=== PATIENT | female | born 1990 | race Hispanic/Latino ===

== ENCOUNTER 2018-08-23 11:26 | Emergency (ER) | payer OTHER ==
[~2018-08-23] VITALS: Ht 162.6 cm; Wt 94.8 kg
[~2018-08-23 11:26] MED LIST: BENZONATATE100 MG PO; IBUPROFEN600 MG PO; LEVAQUIN500 MG PO; NON-ASPIRIN EX500 MG PO; PROMETHAZINE HC25 M1 PO
--- OUTSIDE RECORDS SUMMARY | 2018-08-23 11:30 | XMS REPORT ---
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 Allergies, Adverse Reactions, Alerts Allergy Name Allergy Type Status Severity Reaction(s) Onset Date Inactive Date Treating Clinician Comments hydromorphone DA Active [place] 2018-04-03 00:00:00 shellfish derived DA Active [place] 2018-04-03 00:00:00 shrimp DA Active [place] 2018-04-03 00:00:00 hydromorphone DA Active [place] 2018-03-29 00:00:00 shellfish derived DA Active [place] 2018-03-29 00:00:00 shrimp DA Active [place] 2018-03-29 00:00:00 hydromorphone DA Active [place] 2018-01-09 00:00:00 shrimp DA Active [place] 2018-01-09 00:00:00 Medications This patient has no known medications.
[2018-08-23 13:08] LABS: BASOPHILS % 0.3 % (0.0-1.0); EOSINOPHILS # (AUTO) 0.1 (0.0-0.4); EOSINOPHILS % 0.6 % (0.0-6.0); HEMATOCRIT 40.8 % (34.2-44.1); HEMOGLOBIN 13.2 g/dL (12.0-16.0); LYMPHOCYTES # (AUTO) 2.1 (1.0-3.2); MEAN CORPUSCULAR HGB CONC 32.4 g/dL (31-35); MEAN CORPUSCULAR VOLUME 83.6 fL (81-99); MONOCYTES # (AUTO) 0.5 (0.2-0.8); MONOCYTES % 5.2 % (4.4-11.3); NEUTROPHILS # (AUTO) 6.3 (2.1-6.9); NEUTROPHILS % 70.6 % (38.7-80.0); PLATELET COUNT 302 x10e3/uL (140-360); RED BLOOD COUNT 4.88 x10e6/uL (3.6-5.1); RED CELL DISTRIBUTION WIDTH 14.2 % (11.7-14.4)
[2018-08-23 13:35] LABS: ALANINE AMINOTRANSFERASE 24 IU/L (0-55); ALBUMIN 4.3 g/dL (3.5-5.0); ALBUMIN/GLOBULIN RATIO 1.3 (0.8-2.0); ALKALINE PHOSPHATASE 83 IU/L (40-150); ANION GAP 13.7 mmol/L (8-16); BLOOD UREA NITROGEN 10 mg/dL (7-26); BUN/CREATININE RATIO 15 (6-25); CALCIUM 9.6 mg/dL (8.4-10.2); CARBON DIOXIDE 24 mmol/L (22-29); CHLORIDE 104 mmol/L (98-107); CREATININE, SERUM 0.68 mg/dL (0.57-1.11); EST GLOMERULAR FILTRATION RATE > 60 ML/MIN (60-); GLUCOSE 86 mg/dL (74-118); POTASSIUM 3.7 mmol/L (3.5-5.1); SODIUM 138 mmol/L (136-145)
[2018-08-23 13:57] LABS: CREATINE KINASE 46 IU/L (29-168)
--- NOTE | 2018-08-23 17:19 | Diagnostic Imaging Report ---
EXAM: CT Chest WITH contrast 08/23/2018 11:33 AM INDICATION: ^r/o PE ^[id number] ^[id number] COMPARISON: None. TECHNIQUE: Spiral CT images of the chest were performed from the lung apices through the level of the adrenal glands after the IV contrast administration. Thin section reconstructions were obtained with special concentration on the pulmonary arteries. IV CONTRAST: 100 mL of Isovue-370 ORAL CONTRAST: None COMPLICATIONS: None RADIATION DOSE: Total DLP: 532.2 mGy*cm Estimated effective dose: (DLP x 0.015 x size factor) mSv CTDIvol has been reviewed. It is below the limits set by the Radiation Protocol Committee (RPC). FINDINGS: LINES/ TUBES: None. PULMONARY ARTERIES: Suboptimal contrast density in the pulmonary arteries ranging from 190-250 Hounsfield units. This may masquerade as small filling defects. Tiny filling defect in a subsegmental branch of the left lower lobe on series 2, image 50. Otherwise, no filling defects are identified in the main, right or left pulmonary arteries or remaining segmental and subsegmental levels, to suggest pulmonary embolism. The main pulmonary artery is normal in size, measuring 2.7 cm. LUNGS AND AIRWAYS: 5 mm solitary pulmonary nodule in the right middle lobe on series 3, image 42. Otherwise, lungs are clear. Airways are normal. PLEURA: The pleural spaces are clear. HEART AND MEDIASTINUM: The thyroid gland is normal. No mediastinal, hilar or axillary lymphadenopathy. The heart is normal in size. There is no pericardial effusion. The thoracic aorta and pulmonary arteries are unremarkable. UPPER ABDOMEN: Unremarkable. BONES: The visualized bony thorax is within normal limits. SOFT TISSUES: Unremarkable. IMPRESSION: Suboptimal contrast density within the pulmonary arteries. Tiny subsegmental filling defect in the left lower lobe is suggestive of a small pulmonary embolism. No filling defects in the remaining pulmonary arteries. Normal size of the pulmonary artery. No RV strain. Findings were communicated to Dr. Marie on 08/23/2018 at 5:05 PM Signed by: Dr. Ashley Aden M.D. on 08/23/2018 5:15 PM
[2018-08-23 19:09] VITALS: BP 112/77
[2018-08-23] MEDS ORDERED: SODIUM CHLORIDE 0.9% 50ML 50 ML ONE (19:12)
[2018-08-23] MEDS ORDERED: IOPAMIDOL 370 MG/ML 200 ML INFUS..BTL INJ ONE (19:12)
== END 2018-08-23 19:10 | disposition home or self-care (01) ==
LOC: ER 11:26
DX: R06.09 Other forms of dyspnea (principal); I26.99 Other pulmonary embolism without acute cor pulmonale
CPT/HCPCS: 36415; 71260; 80053; 82550; 82553; 84484; 84702; 85025; 93306; 99284; Q9967

== ENCOUNTER → 2020-01-09 | Outpatient (CLI) | payer OTHER ==
--- NOTE | 2020-01-09 16:21 | Diagnostic Imaging Report ---
EXAM: CT Chest WITHOUT intravenous contrast 01/09/2020 3:50 PM INDICATION: Pulmonary nodule COMPARISON: Chest CT 08/23/2018 TECHNIQUE: Chest was scanned utilizing a multidetector helical scanner from the lung apex through the level of the adrenal glands without administration of IV contrast. Coronal and sagittal reformations were obtained. Routine protocol was performed. IV CONTRAST: None RADIATION DOSE: Total DLP: 252 mGy*cm. Dose modulation, iterative reconstruction, and/or weight based adjustment of the mA/kV was utilized to reduce the radiation dose to as low as reasonably achievable. COMPLICATIONS: None FINDINGS: LINES/ TUBES: None. LUNGS AND AIRWAYS: The central airways are patent. No focal consolidation or pulmonary edema. Unchanged 5 mm right lower lobe pulmonary nodule. PLEURA: The pleural spaces are clear. HEART AND MEDIASTINUM: The thyroid gland is normal. No mediastinal, hilar or axillary lymphadenopathy. The heart is normal in size.. There is no pericardial effusion. UPPER ABDOMEN: No acute findings in the upper abdomen. BONES: The visualized bony thorax is within normal limits. SOFT TISSUES: Unremarkable. IMPRESSION: No focal pneumonia or pulmonary edema. Unchanged 5 mm right lower lobe pulmonary nodule is almost certainly benign and does not require further imaging follow-up. Signed by: Zahida Phillips MD on 01/09/2020 4:17 PM
== END ==
LOC: CT 15:26
PROVIDERS: ATTEND Internal Medicine
DX: R91.1 Solitary pulmonary nodule (principal)
CPT/HCPCS: 71250

== ENCOUNTER 2023-06-01 21:07 | Emergency (ER) | payer OTHER ==
[~2023-06-01] VITALS: Ht 162.6 cm; Wt 86.2 kg
[2023-06-01] MEDS ORDERED: ONDANSETRON HCL INJ 2MG/ML 2ML 2 MG/ML VIAL IV STA (21:58)
[2023-06-01] MEDS ORDERED: FAMOTIDINE 20 MG/2 ML VIAL IV STA (21:58)
[2023-06-01] MEDS ORDERED: SODIUM CHLORIDE 0.9% 1000ML 1,000 ML IV STA (21:58)
[2023-06-01 22:39] LABS: BASOPHILS % 0.5 % (0.0-1.0); EOSINOPHILS # (AUTO) 0.1 (0.0-0.4); EOSINOPHILS % 1.2 % (0.0-6.0); HEMATOCRIT 38.4 % (34.2-44.1); HEMOGLOBIN 12.6 g/dL (12.0-16.0); LYMPHOCYTES # (AUTO) 1.9 (1.0-3.2); LYMPHOCYTES % 22.1 % (18.0-39.1); MEAN CORPUSCULAR HEMOGLOBIN 28.6 pg (28-32); MEAN CORPUSCULAR HGB CONC 32.8 g/dL (31-35); MEAN CORPUSCULAR VOLUME 87.1 fL (81-99); MONOCYTES # (AUTO) 0.5 (0.2-0.8); MONOCYTES % 5.6 % (4.4-11.3); NEUTROPHILS % 70.5 % (38.7-80.0); PLATELET COUNT 278 x10e3/uL (140-360); RED BLOOD COUNT 4.41 x10e6/uL (3.6-5.1); RED CELL DISTRIBUTION WIDTH 12.4 % (11.7-14.4); WHITE BLOOD COUNT 8.54 x10e3/uL (4.8-10.8)
[2023-06-01 22:42] LABS: CLARITY,URINE SL CLOUDY (CLEAR); COLOR,URINE YELLOW (YELLOW); GLUCOSE, URINE NEGATIVE (NEGATIVE); KETONES,URINE NEGATIVE (NEGATIVE); LEUKOCYTE ESTERASE ,URINE NEGATIVE (NEGATIVE); NITRITE,URINE NEGATIVE (NEGATIVE); PH,URINE 8.5 (5 - 7); PROTEIN,URINE DIPSTICK 1+ (NEGATIVE)
[2023-06-01 22:43] LABS: BILIRUBIN,URINE NEGATIVE (NEGATIVE); URINE UROBILINOGEN 1 mg/dL (0.2 - 1)
[2023-06-01 22:44] LABS: PREGNANCY TEST, URINE NEGATIVE (NEGATIVE)
[2023-06-01 23:03] LABS: ALBUMIN 4.3 g/dL (3.5-5.0); ALBUMIN/GLOBULIN RATIO 1.2 (0.8-2.0); ANION GAP 13.8 mmol/L (8-16); BILIRUBIN,TOTAL 0.6 mg/dL (0.2-1.2); CALCIUM 9.2 mg/dL (8.4-10.2); CREATININE, SERUM 0.71 mg/dL (0.57-1.11); POTASSIUM 3.8 mmol/L (3.5-5.1)
[2023-06-01 23:07] LABS: BACTERIA,URINE FEW /HPF; EPITHELIAL CELLS,URINE FEW /LPF
[2023-06-01] MEDS ORDERED: IOPAMIDOL 370 MG/ML 100 ML INFUS..BTL INJ ONE (23:18)
[2023-06-01] MEDS ORDERED: DIPHENHYDRAMINE HCL INJ 50 MG/ML VIAL IV STA (23:39)
[2023-06-02] MEDS ORDERED: PEPCID20 MG PO (00:23)
[2023-06-02 00:45] VITALS: BP 111/75; O2SAT 97
== END 2023-06-02 00:36 | disposition home or self-care (01) ==
LOC: ER 21:13
DX: R10.13 Epigastric pain (principal); Z86.718 Personal history of other venous thrombosis and embolism
CPT/HCPCS: 36415; 74177; 80053; 81001; 81025; 83690; 85025; 93005; 99284; J1200; J2405; J7030; Q9967